=== PATIENT | male | born 1985 | race African-American/Black ===

== ENCOUNTER 2020-10-20 11:13 | Outpatient (CLI) | payer SELFPAY ==
[2020-10-20] MEDS: Methacholine 100 MG VIAL IH (16:42)
[2020-10-20] MEDS: Albuterol HFA 18 GM 200 PUFF INH IH (16:42)
[2020-10-20] MEDS: Inhaler, Assist Device 1 EACH MC (16:43)
--- NOTE | 2020-10-30 11:24 | W.PFT ---
Date of service: 10/20/20 Time of Service: 02:59 Pulmonary Function Test Result Interpretation Spirometry: No evidence of obstructive airways disease, no bronchodilator response Lung Volumes: No evidence of restriction Diffusion Capacity: Normal but slightly elevated when corrected to alveolar volume Airway Pressure: Normal Impression Normal pulmonary function test other than Isolated, slightly elevated diffusion capacity when corrected to alveolar volume. This constellation of findings can be seen in asthma. If the diagnosis of asthma is in question proceeding with methacholine challenge testing may prove to be useful. Clinical Correlation therefore is recommended. Methacholine Challnege Test Date of Service Date of Service: 10/20/2020 Note After normal pulmonary function study, methacholine challenge testing was carried out up to methacholine concentration of 1 mg/mL at which point the patient had a 21% drop in FEV1. Impression Strongly positive methacholine challenge test
== END 2020-10-20 11:14 | disposition home or self-care (01) ==
PROVIDERS: Visit Provider Nurse Practitioner Family
DX: R06.09 Other forms of dyspnea (principal); F17.210 Nicotine dependence, cigarettes, uncomplicated
CPT/HCPCS: 94060; 94726; 94729; 95070; 94010; J7674

== ENCOUNTER 2022-05-31 17:54 | Emergency (ER) | payer SELFPAY ==
[2022-05-31 17:56] VITALS: BP 132/72; PULSE 77; RESP 14; TEMP 37; O2SAT 96
--- NOTE | 2022-05-31 18:15 | W.ED.GENAD ---
Discharge Plan Disposition Patient Disposition: Home Condition: Stable Discharge Details Clinical Impression: Hemorrhoid Primary Care Provider: Unknown,Unknown ED Provider: Lauren Britt Home Meds and New Rx's Prescriptions: No Action No Known Home Meds Discharge Instructions Instructions: Hemorrhoids (ED) Additional Instructions: Use the hydrocortisone cream 2-3 times a day as needed for pain and swelling. Follow up with your primary care provider in 3-5 days. Return to ED sooner if any worsening or concerns. Increase oral fluids. Please take Tylenol or Ibuprofen with food every 4-6 hours as needed for pain and swelling. Medical Decision Making Patient on hydrocortisone cream and instructed on use. Discussed home care follow-up care with PCP. Patient was placed on the care management list to establish with PCP. Discussed strict return instructions. This text was generated using yourdelivery dictation system, please disregard any oddities of phrase or misspellings. Sign Out No HPI General Mode of arrival: ambulatory. Date/Time Provider Initiated Documentation: 05/31/22 18:03. Limitations to Documentation: no limitations. Information obtained by: patient and RN notes reviewed. HPI Narrative: 36-year-old male presents to the ER with chief complaint of feeling a bump on his rectum. He reports that today he felt release and then it began bleeding. He denies any tenderness no fever chills denies any constipation. Related Data Home Medications Medication Instructions Recorded Confirmed Unknown [No Known Home Meds] 05/31/22 05/31/22 Allergies Allergy/AdvReac Type Severity Reaction Status Date / Time No Known Allergies Allergy Unverified 05/31/22 18:02 General Stated Complaint: Cellulitis MARIXA: 4 Review of Systems All systems reviewed & are unremarkable except as noted in HPI and below Gastrointestinal Gastrointestinal: Reports as per HPI PFSH All Active Problems (Updated 05/31/22 @ 18:28 by Lauren Britt NP) Hemorrhoid (Acute) Social History Smoking/Tobacco Use Status: Current every day Smoking risk assessment performed?: Yes Alcohol Intake: current Alcohol Intake frequency: holidays/special occasions only Substance use type: does not use Do you feel safe at home: Yes Do you feel safe in your relationship?: Yes Exam GI Rectal Exam: normal sphincter tone and hemorrhoids (Single hemorrhoid at 7 o clock, Open area on hemorrhoid with dried blood) Course Vital Signs Vital signs: Vital Signs Temperature 37.0 C 05/31/22 17:56 Pulse 77 05/31/22 17:56 Respiratory Rate 14 05/31/22 17:56 Blood Pressure 132/72 05/31/22 17:56 Pulse Oximetry 96 05/31/22 17:56 Temperature 37.0 C 05/31/22 17:56 Temperature Source Skin 05/31/22 17:56 Pulse 77 05/31/22 17:56 Respiratory Rate 14 05/31/22 17:56 Respiratory Effort 05/31/22 18:02 Blood Pressure 132/72 05/31/22 17:56 Blood Pressure Position Sitting 05/31/22 17:56 Pulse Oximetry 96 05/31/22 17:56 Oxygen Delivery Method Room Air 05/31/22 17:56 Oxygen Flow Rate 0 05/31/22 17:56 Pain Level 0 05/31/22 17:56
--- NOTE | 2022-05-31 18:30 | NUR.NOTE ---
Nursing Note: PT info given to care management for follow up to establish care. [place], ED
== END 2022-05-31 18:38 | disposition home or self-care (01) ==
PROVIDERS: Emergency Provider Registered Nurse Emergency; PCP Nurse Practitioner Family
DX: K64.9 Unspecified hemorrhoids (principal)
CPT/HCPCS: 99283; J3490

== ENCOUNTER 2023-12-31 13:26 | Outpatient (REF) | payer OTHER, SELFPAY ==
[2023-12-31 20:17] LABS: Hemoglobin A1C 6.8 % (<5.7)
[2023-12-31 20:20] LABS: ALT 59 U/L (16-63); AST 26 U/L (15-37); Alkaline Phosphatase 128 U/L (46-116); Anion Gap 7.2 mmol/L (3-11); BUN 8 mg/dL (7-18); Bilirubin, Total 0.57 mg/dL (0.2-1.0); CO2 31.8 mmol/L (21.0-32.0); CREATININE 0.9 mg/dL (0.70-1.30); Calcium 9.5 mg/dL (8.5-10.1); Calculated LDL 146 mg/dL (<100); Chloride 104 mmol/L (98-107); Cholesterol 208 mg/dL (<200); Estimated GFR 113.51 (mL/min/1.73m2); Glucose 96 mg/dL (74-106); HDL Cholesterol 49 mg/dL (40-60); Potassium 4.6 mmol/L (3.5-5.1); Sodium 143 mmol/L (136-145); Total Protein 8.1 g/dL (6.4-8.2); Triglyceride 67 mg/dL (<150)
[2024-01-01 18:48] LABS: Hepatitis C Ab w Rflx HCV PCR Negative (Negative)
[2024-01-01 18:54] LABS: HIV-1/2 Ag & Ab Screen Negative (Negative)
[2024-01-02 14:01] LABS: Syphilis Serology (RPR) Negative (Negative)
[2024-01-02 17:40] LABS: Chlamydia Result Negative (Negative); GC Result Negative (Negative)
== END 2023-12-31 13:27 | disposition home or self-care (01) ==
LOC: NCHCN 13:26
PROVIDERS: Visit Provider Nurse Practitioner Family
DX: E78.5 Hyperlipidemia, unspecified (principal); R79.89 Other specified abnormal findings of blood chemistry; Z13.1 Encounter for screening for diabetes mellitus; Z11.3 Encounter for screening for infections with a predominantly sexual mode of transmission; Z11.4 Encounter for screening for human immunodeficiency virus [HIV]; Z11.59 Encounter for screening for other viral diseases
CPT/HCPCS: 80053; 80061; 86803; 87389; 87491; 87591; 83036; 86592

== ENCOUNTER 2024-07-16 20:02 | Outpatient (REF) | payer OTHER, SELFPAY ==
[2024-07-16 19:42] LABS: COMMENT (LAB VIEW ONLY) 157.36 mg/dL; Microalb ug/mg Crea 11.5 ug/mg Cr
== END 2024-07-16 20:03 | disposition home or self-care (01) ==
LOC: NCHCN 20:02
PROVIDERS: Visit Provider Nurse Practitioner Family
DX: E11.9 Type 2 diabetes mellitus without complications (principal)
CPT/HCPCS: 82043; 82570

== ENCOUNTER 2025-01-05 22:28 | Emergency (ER) | payer OTHER, SELFPAY ==
[2025-01-05 22:37] VITALS: BP 123/70; PULSE 76; RESP 18; TEMP 36.7; O2SAT 98
--- NOTE | 2025-01-05 22:40 | ED.GENADUL_ITS ---
Discharge Plan Disposition Patient Disposition: Home Condition: Stable Discharge Details Clinical Impression: Laceration of scalp Primary Care Provider: Unknown,Unknown ED Provider: Lucien Malloy Home Meds and New Rx's Prescriptions: No Action No Known Home Meds Discharge Instructions Instructions: Laceration Repair With Declan ED Additional Instructions: You were seen in the emergency department for your scalp laceration, this was repaired by 2 declan these will need to be removed in 7 to 10 days, please watch for signs of infection, double check with [facility] about your tetanus shot as we do not have it in our system. If it is outside of 10 years please update it. Please return to the emergency department in 7 to 10 days for staple removal or earlier for signs of infection, take Tylenol and ibuprofen as needed for pain. Discharge Data Discharge Date/Time-TO BE ENTERED AT DEPARTURE: 01/05/25 23:00 HPI General Date/Time Provider Initiated Documentation: 01/05/25 22:35 . HPI Narrative: 39 year-old male presents to ED today by POV/ambulating with his with a chief complaint of fell backwards into a coffee table playing with his son at home and has a small scalp abrasion or laceration to his posterior scalp with onset just prior to arrival. Quality described as no loss of consciousness, no headache, no altered mentation, no radiation to active bleeding, confusion, lethargy, slurred speech, nausea/vomiting. Severity is described as mild. Palliating factors include nothing specific. Provoking factors include nothing specific. Patient not anticoagulated. Related Data Home Medications ?Medication ?Instructions ?Recorded ?Confirmed Unknown [No Known Home Meds] 05/31/22 1 07/31/21 Allergies Allergy/AdvReac Type Severity Reaction Status Date / Time No Known Allergies Allergy Unverified 05/31/22 18:02 General Stated Complaint: Laceration MARIXA: 3 Review of Systems All systems reviewed & are unremarkable except as noted in HPI and below Exam Narrative Exam Narrative: GENERAL APPEARANCE: Well-nourished, non-toxic, awake and alert, atraumatic, no acute distress. SKIN: Warm, normal for ethnicity, dry, intact, without rashes/lesions/ulcerations. HEAD: Normocephalic, 1cm horizontal linear laceration to posterior scalp, normal hair distribution for gender/age. EYES: Normal conjunctiva, no exudates on lids/lashes. ENT: Nares patent, no circumoral cyanosis, no facial swelling NECK: Supple, trachea midline, painless cervical ROM. LUNGS/CHEST: Non-labored respirations, normal A/P diameter, symmetrical expansion, no chest wall deformity HEART (CV/PV): No peripheral edema, no JVD. ABDOMEN: Soft, non-distended, no guarding. MSK: Normal ROM, no swelling/deformity to bilateral UEs or LEs, moving all extremities without weakness, no cyanosis, spine midline without tenderness, normal curvature. NEURO: Mental Status AAOx4 - alert to person, place, time, events No facial droop, no forehead involvement. Motor: No focal weakness - strength 5/5 in bilateral UEs and LEs, proximal and distal, symmetric. Sensory: sensation intact to light touch globally. Gait normal: patient ambulated without ataxia into ED room. PSYCH: euthymic, cooperative, pleasant, appropriate speech Course Vital Signs Vital signs: Vital Signs Temperature 36.7 C 01/05/25 22:37 Pulse 76 01/05/25 22:37 Respiratory Rate 18 01/05/25 22:37 Blood Pressure 123/70 01/05/25 22:37 Pulse Oximetry 98 01/05/25 22:37 Temperature 36.7 C 01/05/25 22:37 Temperature Source Oral 01/05/25 22:37 Pulse 76 01/05/25 22:37 Respiratory Rate 18 01/05/25 22:37 Blood Pressure 123/70 01/05/25 22:37 Blood Pressure Position Sitting 01/05/25 22:37 Pulse Oximetry 98 01/05/25 22:37 Oxygen Delivery Method Room Air 01/05/25 22:37 Oxygen Flow Rate 0 01/05/25 22:37 Procedure Laceration Laceration 1: Date of Procedure: 01/05/25 Time of procedure: 22:47 Provider that performed the procedure: Lucien Malloy Standard Time Out Performed: No Patient Consented: Verbally Site: scalp Description: linear Depth: simple, single layer Pre-repair:: wound explored and irrigated extensively Skin layer closed with: declan Number of sutures:: 2 Medical Decision Making This dictation utilizes [id number] dictation software and may contain unedited grammatical errors. 39 year-old male presents to ED today by POV/ambulating with his with a chief complaint of fell backwards into a coffee table playing with his son at home and has a small scalp abrasion or laceration to his posterior scalp with onset just prior to arrival. Quality described as no loss of consciousness, no headache, no altered mentation, no radiation to active bleeding, confusion, lethargy, slurred speech, nausea/vomiting. Severity is described as mild. Palliating factors include nothing specific. Provoking factors include nothing specific. Patients' medical history: negative, otherwise healthy. Family and social history: noncontributory. Pertinent exam findings / vital signs include 1cm horizontal posterior scalp laceration. Differential / pathologies of concern include laceration, minor concussion. Diagnostic studies of: -None. Interventions of: -2 staple repair. ED Course/Assessment/Plan: 39-year-old male who has a minor scalp laceration repaired with 2 declan, anand mmend watching it for signs of infection with strict return criteria but also routine return in 7 to 10 days for staple removal, patient has no signs of concussion or altered mental status. patient prefers to check with PCP for Tdap records Findings not consistent with concussion, ICH. Disposition of Laceration of Scalp. Patient verbalized understanding of the plan and return to ED criteria and engaged in shared decision making. Medical Records Medical records reviewed: Yes I reviewed the patient's medical records. PFSH All Active Problems (Updated 01/05/25 @ 22:49 by CARL Bruno) Laceration of scalp (Acute) Social History Smoking/Tobacco Use Status: Current every day Smoking risk assessment performed?: Yes Alcohol Intake: current Alcohol Intake frequency: holidays/special occasions only Substance use type: does not use Do you feel safe at home: Yes Do you feel safe in your relationship?: Yes
== END 2025-01-05 23:00 | disposition home or self-care (01) ==
PROVIDERS: Emergency Provider Physician Assistant
DX: S01.01XA Laceration without foreign body of scalp, initial encounter (principal); W51.XXXA Accidental striking against or bumped into by another person, initial encounter
CPT/HCPCS: 12001; 99283

== ENCOUNTER 2025-01-14 08:42 | Emergency (ER) | payer OTHER, SELFPAY ==
[2025-01-14 08:44] VITALS: BP 116/82; PULSE 67; RESP 16; TEMP 36.4; O2SAT 100
--- NOTE | 2025-01-14 08:55 | ED.GENADUL_ITS ---
Discharge Plan Disposition Patient Disposition: Home Discharge Details Clinical Impression: Encounter for staple removal Primary Care Provider: Unknown,Unknown ED Provider: Colin Holden Home Meds and New Rx's Prescriptions: No Action No Known Home Meds Discharge Instructions Instructions: Staple Removal Additional Instructions: You are seen in the emergency department for your staple removal. As we discussed if develop streaking signs of infection fevers or foul-smelling drainage please return to the emergency department. HPI General Date/Time Provider Initiated Documentation: 01/14/25 08:55 . HPI Narrative: MDM This is an overall very well-appearing normothermic and not tachycardic 39-year-old male with 2 lashonda in his head which have been in for approximately 9 days in which I removed uneventfully in the emergency department. He had no streaking signs of infection no foul-smelling drainage and no fluctuance to suggest abscess. No pain out of proportion to suggest necrotizing soft tissue infection. He had not received a tetanus immunization at his index visit however he had checked with his primary care provider and he had a tetanus immunization booster last year. We discussed that he should return if he developed any shortness of breath fevers streaking signs of infection or any foul-smelling drainage. He understood his return indications and was discharged with empiric trial of expectant outpatient management. HPI This is a 39-year-old male returns emergency department following lashonda that were placed 9 days ago. He has had no foul-smelling drainage. No fevers or chills. No streaking signs of infection. No headache. No loss of consciousness. Exam General: Well-appearing in no acute distress speaking in complete sentences. Head: Normocephalic. On the occipital scalp there is a small approximately 2 cm laceration that is healing with intact lashonda. There is no fluctuance. No streaking signs of infection. No foul-smelling drainage. Eye: Extraocular eye movements intact. No conjunctival injection. No scleral icterus. Ear, nose, mouth, throat: Grossly normal inspection. Normal voice, handling secretions normally. Neck: Trachea midline. Cardiovascular: Well-perfused distal extremities. Respiratory: Nonlabored respiration. Gastrointestinal: Nondistended abdomen. Musculoskeletal: No edema. Moving all 4 extremities spontaneously. Skin: Normal for age and race, grossly normal temperature and turgor. No acute rash. Neurologic: Alert and appropriate, no apparent acute deficits. GCS 15 Psychiatric: Mood and manner are appropriate. Grooming and personal hygiene are appropriate. Related Data Home Medications ?Medication ?Instructions ?Recorded ?Confirmed Unknown [No Known Home Meds] 05/31/22 0 01/14/25 Allergies Allergy/AdvReac Type Severity Reaction Status Date / Time No Known Allergies Allergy Unverified 01/14/25 08:48 General Stated Complaint: SutureRem MARIXA: 4 Course Vital Signs Vital signs: Vital Signs Temperature 36.4 C 01/14/25 08:44 Pulse 67 01/14/25 08:44 Respiratory Rate 16 01/14/25 08:44 Blood Pressure 116/82 01/14/25 08:44 Pulse Oximetry 100 01/14/25 08:44 Temperature 36.4 C 01/14/25 08:44 Temperature Source Tympanic 01/14/25 08:44 Pulse 67 01/14/25 08:44 Respiratory Rate 16 01/14/25 08:44 Blood Pressure 116/82 01/14/25 08:44 Pulse Oximetry 100 01/14/25 08:44 Oxygen Delivery Method Room Air 01/14/25 08:44 Oxygen Flow Rate 0 01/14/25 08:44 Pain Level 0 01/14/25 08:44 PFSH All Active Problems (Updated 01/14/25 @ 09:10 by Colin Holden MD) Encounter for staple removal (Acute) Laceration of scalp (Acute) Social History Smoking/Tobacco Use Status: Current every day Smoking risk assessment performed?: Yes Alcohol Intake: current Alcohol Intake frequency: holidays/special occasions only Drug use: Never Substance use type: does not use Do you feel safe at home: Yes Do you feel safe in your relationship?: Yes
== END 2025-01-14 17:34 | disposition home or self-care (01) ==
LOC: ER 09:19
PROVIDERS: Emergency Provider Emergency Medicine
DX: S01.01XD Laceration without foreign body of scalp, subsequent encounter (principal); F17.210 Nicotine dependence, cigarettes, uncomplicated; X58.XXXD Exposure to other specified factors, subsequent encounter